=== PATIENT | male | born 1950 | race Caucasian/White ===

== ENCOUNTER 2019-05-08 07:36 | Inpatient (IN) ==
--- NOTE | 2019-04-09 09:41 | PAT Medication Instructions ---
Medication Instructions Date of Service April 09, 2019 Home Medications chlorthalidone 25 mg PO QAM losartan 100 mg PO QAM multivitamin 1 tab PO QAM nitroglycerin 0.4 mg SUBLINGUAL DAILY PRN rosuvastatin 20 mg PO QPM warfarin 6 mg PO 5XWK Continue as directed nitroglycerin 0.4 mg SUBLINGUAL DAILY PRN ASK your prescriber and surgeon warfarin 6 mg PO 5XWK DO NOT take the morning of surgery chlorthalidone 25 mg PO QAM losartan 100 mg PO QAM multivitamin 1 tab PO QAM Take evening before surgery rosuvastatin 20 mg PO QPM *NOTHING TO EAT OR DRINK AFTER MIDNIGHT* Other Notes If you have any questions please call us at [phone] or [phone] or [phone] or [phone]
--- NOTE | 2019-04-09 10:37 | Anesthesiology Consultation ---
Date of Service April 09, 2019 Assessment & Plan (1) Encounter for pre-operative examination: Cardiology 02/26/2019: "No contraindication for knee surgery from cardiac standpoint. His functional capacity is excellent. His cardiovascular risk is acceptable. His medical therapy is optimized." Chart Review Chart Review: Acceptable Risk for Surgery (pending pre op testing and pcp clearance) and Patient seen in Pre Admission Testing Teaching & Discussion Instructed NPO after midnight before surgery, except medications with 15 cc of water. Medication instructions provided according to the PAT guidelines. History Surgery Operation Date: 05/08/19 09:30 Proposed Procedures p Right Total Knee Arthroplasty - Blayne Massey MD Height/Weight Height: 6 ft 2 in Weight: 119.5 kg Allergies Allergy/AdvReac Type Severity Reaction Status Date / Time Penicillins Allergy Unknown VERTIGO Verified 04/03/19 10:53 Medications Home Medications Medication Instructions Recorded Confirmed Last Taken chlorthalidone 25 mg PO QAM 04/03/19 04/03/19 Unknown losartan 100 mg PO QAM 04/03/19 04/03/19 Unknown multivitamin 1 tab PO QAM 04/03/19 04/03/19 Unknown nitroglycerin 0.4 mg SUBLINGUAL DAILY PRN 04/03/19 04/03/19 Unknown rosuvastatin 20 mg PO QPM 04/03/19 04/03/19 Unknown warfarin 6 mg PO 5XWK 04/03/19 04/03/19 Unknown Past Medical History Medical History (Updated 04/09/19 @ 11:12 by Trell Dodson) Afib Permanent, on Coumadin CAD (coronary artery disease) Status post PCI of pLAD with JAYLENE and PTCA of D2 on October 21, 2010. DJD (degenerative joint disease) Hearing deficit B/L hearing aids Hyperlipidemia Hypertension Myocardial infarction LAD TERRITORY PER 2018 ECHO. PRESERVED EF. Osteoarthritis Exercise / Class Metabolic Activity II 4-5 Yardwork/Stairs/Walk up hill (Denies Cp or SOB with 1 FOS) He is very active. He rides a stationary bicycle for 60 minutes a day, 5 to 7 days a week. He lifts weights 3 times a week. Past Surgical History Surgical History Hx of appendectomy Hx of cardiac cath 2010 [facility] - 1 STENT Hx of colonoscopy Past Anesthesia History No Hx of Anesthesia Complications and No Family Hx of Anesthesia Complications History of PONV No Hx of PONV and No Hx of Motion Sickness Social History Smoking Status: Never smoker Do You Dip or Chew Tobacco: No Hx Alcohol Use: No Hx Substance Use: No Review of Systems Pt denies any recent chest pain, shortness of breath, palpitations, cough, fever or URI. Physical Exam Vital Signs BP: 97/65 (denies lightheadedness/dizziness, states he is usually low 100's systolic) P: 49bpm (asymptomatic) SPO2: 97% RA T: 97.7 F R: 16 ENMT Mouth: + dentures (partial upper); no dental restorations, no chipped teeth and no loose teeth Thyromental Distance: > or= 3.5 Finger Breadths (4) Mallampati Class: II Neck normal visual inspection, + limited neck extension and + facial hair (short mustache) Respiratory normal respiratory effort Auscultation: lungs clear to auscultation bilaterally Cardiovascular Rate/Rhythm: + bradycardic; + abnormal rhythm (irreg irreg) Heart Sounds: no murmur Vessels: no carotid bruit Extremities: no edema Testing Electrocardiogram Date: 04/09/19 Chest X-Ray Date: 04/09/19 Echocardiogram Date: 09/25/17 EF: 55-59% Apical inferior septum, apical anterior segment and mid anteroseptal segments are hypokinetic (LAD territory). The rest of the LV contracts normally. Left atrium is severely enlarged (> 48 mL/m) and the right atrium is enlarged (>18) the right ventricular cavity size is normal and right ventricular systolic function is normal. There is no evidence of pulmonary hypertension. No significant valvular disease is present.
--- NOTE | 2019-04-09 11:30 | XRay Report ---
XR chest Pre-admission PA/Lat CLINICAL HISTORY: 68 years-old Male presenting with preoperative assessment. TECHNIQUE: PA and lateral views of the chest were obtained. COMPARISON: None. FINDINGS: Atherosclerosis of the aortic arch. Cardiac silhouette mildly enlarged. Small or pleural effusion. Mi nimal basilar opacity. No pneumothorax. Degenerative changes of the thoracic spine. Upper abdomen nor mal. IMPRESSION: 1. Small right pleural effusion and atelectasis. 2. Mild cardiomegaly. ACT 112: Negative or not required by law. Electronically signed by: Lawrence Miranda M.D. 04/09/2019 11:28 AM
[2019-04-09 11:52] LABS: Basophils # (auto) 0.02 K/uL (0-0.2); Basophils % (auto) 0.3 %; Eosinophils # (auto) 0.07 K/uL (0-0.5); Eosinophils % (auto) 1.1 %; Hemoglobin 12.9 g/dL (14.0-18.0); Immature Granulocytes # (auto) 0.01 K/uL (0.00-0.02); Immature Granulocytes % (auto) 0.2 %; Lymphocytes # (auto) 1.75 K/uL (1.2-3.4); Lymphocytes % (auto) 27.7 %; Mean Corpuscular Hemoglobin 25.4 pg (25-34); Mean Corpuscular Hgb Conc 32.3 g/dL (32-36); Mean Corpuscular Volume 78.9 fL (80-100); Mean Platelet Volume 11.7 fL (7.4-10.4); Monocytes # (auto) 0.73 K/uL (0.11-0.59); Monocytes % (auto) 11.6 %; Neutrophils # (auto) 3.73 K/uL (1.4-6.5); Neutrophils % (auto) 59.1 %; Platelet Count 237 K/uL (130-400); RDW Standard Deviation 45.6 fL (36.4-46.3); Red Blood Count 5.07 M/uL (4.7-6.1); White Blood Count 6.31 K/uL (4.8-10.8)
[2019-04-09 11:54] LABS: Appearance Urine Clear (Clear); Bacteria Urine Automated Negative (Negative); Bilirubin Urine Negative (Negative); Blood Urine Trace (Negative); Cast Urine Automated 0 /lpf (0-5); Color Urine Yellow; Epithelial Cell Urine Auto 0-5 /lpf (0-5); Glucose Urine UA Negative (Negative); Ketones Urine Negative (Negative); Leukocyte Esterase Urine Negative (Negative); Nitrite Urine Negative (Negative); Protein Urine Negative (Negative); Urobilinogen Urine Negative (Negative); pH Urine 6.5 (4.5-7.5)
[2019-04-09 11:59] LABS: Estimated Average Glucose 123 mg/dl; Hemoglobin A1C 5.9 % (4.5-5.6)
[2019-04-09 12:00] LABS: Albumin Level 3.3 gm/dl (3.4-5.0); BUN Creatinine Ratio 25.7 (10-20); Calcium 8.8 mg/dl (8.5-10.1); Creatinine Clr Calc Pharmacy 99.8 ml/min; Est GFR (African American) 90.5; Est GFR (Non-African American) 78.1; Potassium 3.7 mmol/L (3.5-5.1)
[2019-04-09 12:05] LABS: INR 2.6 (0.9-1.1); Partial Thromboplastin Ratio 1.3; Partial Thromboplastin Time 36.5 Seconds (21.0-31.0); Prothrombin Time 25.3 Seconds (9.0-12.0)
--- NOTE | 2019-04-09 12:09 | Electrocardiogram Report ---
Test Reason : Blood Pressure : / mmHG Vent. Rate : 054 BPM Atrial Rate : 234 BPM P-R Int : 000 ms QRS Dur : 094 ms QT Int : 442 ms P-R-T Axes : 000 083 066 degrees QTc Int : 419 ms Atrial fibrillation with slow ventricular response Abnormal ECG No previous ECGs available Confirmed by Morris Guido ([id number]) on 04/09/2019 12:09:46 PM Referred By: Blayne Massey Confirmed By:Morris Guido
--- NOTE | 2019-05-07 18:21 | History and Physical Report ---
DATE OF ADMISSION: 05/08/2019 CHIEF COMPLAINT: Chronic right knee pain. HISTORY OF PRESENT ILLNESS: This is a 68-year-old male patient of Dr. Massey'trista complaining of chronic right knee pain, longstanding, now progressively getting worse. The patient has failed conservative treatment including viscosupplementation, anti-inflammatories, home exercise program and the use of a brace. The patient has increased pain with weightbearing activities and his pain does interfere with his activities of daily living. The patient has been diagnosed with end-stage osteoarthritis per clinical and radiographic exams. The patient wished to proceed with a right total knee arthroplasty. PAST MEDICAL HISTORY: Coronary artery disease, status post an CA 11 of years ago, atrial fibrillation, rheumatoid arthritis, and osteoarthritis. SOCIAL HISTORY: Nonsmoker, nondrinker. FAMILY HISTORY: Noncontributory. REVIEW OF SYSTEMS: Chronic right knee pain and instability. Otherwise, denies any shortness of breath, chest pain, nausea, vomiting or any other joint complaints. MEDICATIONS: 1. Chlorthalidone 25 mg daily. 2. Losartan 100 mg daily. 3. Multivitamin daily. 4. Nitroglycerin 0.4 mg sublingual tablet as needed. 5. Crestor 20 mg daily. 6. Coumadin 6 mg as directed. ALLERGIES: PENICILLIN. PHYSICAL EXAMINATION: GENERAL: Well-developed, well-nourished 68-year-old male in no acute distress. He is alert and oriented x3 and pleasant. HEENT: Normocephalic, atraumatic. Extraocular motions are intact. Pupils are equal and reactive to light. HEART: Irregular rate and rhythm with a history of atrial fibrillation. LUNGS: Clear. ABDOMEN: Soft and nontender. Bowel sounds present. EXTREMITIES: Right knee limited range of motion of 0-90 degrees. He has a mild effusion. He has a varus deformity with medial joint line tenderness. 4/5 strength. Neurologically and neurovascularly intact in his right lower extremity. DIAGNOSES: 1. Right knee end-stage osteoarthritis. 2. Coronary artery disease, status post a myocardial infarction 11 years ago. 3. Atrial fibrillation. 4. Rheumatoid arthritis and osteoarthritis. PLAN: The patient was advised of his diagnosis. Indications, risks, benefits, postop course have all been reviewed. The patient wished to proceed with a right total knee arthroplasty. Necessary consent forms, preoperative testing and clearances will be obtained.
[~2019-05-08 07:36] MED LIST: ACETAMINOPHEN 500 MG TAB PO SCH; BUPIVACAINE 0.5 % 5 MG/1 ML PF 10ML VIAL ONE; CeleBREX 200 MG CAP PO SCH; EPINEPHrine INJ 1 MG/ML AMP ONE; FAMOTIDINE 20 MG TAB PO SCH; GABAPENTIN 300 MG CAP PO SCH; LR 500ML BOLUS, THEN 15ML/HR IV SCH; METOCLOPRAMIDE HCL 10 MG TABLET PO SCH; ROPIVACAINE 0.5% 5 MG/ML 30 ML VIAL ONE; ROPIVACAINE 0.5% HCL/PF 150 MG, BUPIVACAINE 0.5% MPF 30 ML, EPINEPHrine 30MG/30ML (OR U... INFIL SCH; VANCOMYCIN HCL 1,750 MG in SODIUM CHLORIDE 0.9% 500 ML IV SCH; dexAMETHasone 4 MG TAB PO SCH
[2019-05-08] MEDS ORDERED: fentaNYL citrate 100 MCG/2 ML VIAL ONE (07:53)
[2019-05-08] MEDS ORDERED: PROPOFOL IV EMULSION 10 MG/ML 20 ML VIAL IV ONE ×3 (07:53→10:50)
[2019-05-08] MEDS ORDERED: PHENYLEPHRINE 100MCG/ML 5ML SYR ONE (07:53)
[2019-05-08] MEDS ORDERED: ePHEDrine sulfate 50 MG/ML SYR ONE (07:53)
[2019-05-08] MEDS ORDERED: LIDOCAINE HCL 2% 2 ML VIAL/AMP(20MG/ML) INFIL ONE (07:53)
[2019-05-08] MEDS ORDERED: MIDAZOLAM HCL 1 MG/ML 2ML VIAL ONE ×2 (07:53)
[2019-05-08 08:46] LABS: INR 1.2 (0.9-1.1); Partial Thromboplastin Time 26.8 Seconds (21.0-31.0); Prothrombin Time 11.9 Seconds (9.0-12.0)
--- NOTE | 2019-05-08 09:08 | History & Physical Bridge Note ---
Date of Service May 08, 2019 History & Physical Bridge Note I have examined the patient, reviewed the History & Physical and in the interval since the performance of the History & Physical I have noted the following changes of clinical significance: no changes noted
[2019-05-08] MEDS ORDERED: ORTHO JOINT ANESTHETIC ONE (09:41)
[2019-05-08] MEDS ORDERED: BACITRACIN INJ 50,000 UNIT VIAL ONE (09:42)
[2019-05-08] MEDS ORDERED: ePHEDrine sulfate 50 MG/ML AMP IV PRN (10:48)
[2019-05-08] MEDS ORDERED: ATROPINE SULFATE 0.1 MG/ML 10ML SYR IV PRN (10:48)
--- NOTE | 2019-05-08 12:41 | Operative Report ---
Post Operative Report Pre & Post Diagnosis Operation Date: 05/08/19 10:20 Pre-Op Diagnosis: Right Knee Osteoarthritis Post-Op Diagnosis: Right Knee Osteoarthritis I identified the patient and participated in the time-out.: Yes Procedure Operation Date: 05/08/19 10:20 Actual Procedures p Right Total Knee Arthroplasty(Right) - Blayne Massey MD Surgeon Blayne Massey MD Reclaimer CASSIA [place] Estimated Blood Loss 5 Findings Consistent with Post-Op Diagnosis Specimens Bone cuts Drains 2 Hemovac Anesthesia Type MAC Spinal Regional Complications none Disposition Accompanied Patient To Recovery: No Disposition: Recovery Room Indications 68-year-old male with bilateral knee osteoarthritis with severe right knee osteoarthritis [id number] on weightbearing flexion views. Patient has tricompartmental OA and decreased range of motion Description of Procedure Patient taken to the operating room placed supine on the operating table and anesthetized under spinal MAC regional anesthesia. Exam under anesthesia demonstrated varus knee [id number] crepitation range of motion of 10 to 95 degrees only no instability. A pneumatic tourniquet was placed about the thigh of the right lower extremity. The right lower extremity was prepped and draped in usual fashion. Leg was elevated exsanguinated with an Esmarch bandage and the pneumatic was raised to 325 mm mercury. An anterior incision was made across the right knee. The skin was incised longitudinally subcutaneous flaps were elevated and an incision was made through the medial retinaculum extending up into the mid third of the quadriceps tendon and extended down to the medial tibial tubercle. Intra-articular findings demonstrated tricompartmental DJD root detachment posterior horn the meniscus with chronic knee meniscus tear. Grade 4 trochlear patellofemoral DJD grade 3 patella chondromalacia grade 4 [id number]-[id number] medial compartment OA tricompartmental osteophytes. Grade 3 lateral compartment OA. The knee was exposed by excising the infrapatellar fat pad, excising the meniscal remnants and anterior cruciate ligament. Any inflamed synovial tissue was resected. The fat pad over the anterior femur was resected for placement of the component in that area. The lateral synovial bands were released. Appropriate releases were performed to balance ligaments. The femur was exposed. The custom femoral cutting block was pinned in position. The distal femoral cutting block was applied. The distal femoral cut was made with the oscillating saw. I took +2 more of the standard cut due to flexion contracture. The size 11, 4-in-1 cutting block was placed. The anterior and posterior chamfer cuts were made. The knee was extended and a subperiosteal peel lateral release was performed around the patella. The patella width was measured and width was reproduced using freehand cut technique. The 38 x 9.5 millimeter symmetrical patella was used. 3 drill holes are made for the pegs. The tibia was exposed. A custom tibial cutting block was positioned and drill holes were made for the cutting guide. Cutting guide was placed and the proximal cut was made with the oscillating saw. All osteophytes were resected. The lamina r&d lab technician was used to assess ligamentous balance and the ligaments were balanced in extension and flexion. The tibia was reexposed and measured for a size H tibial component. This was externally rotated in line with the tibial tubercle and the fixation pins were drilled. The proximal tibia was fashioned with the drill and punch. The size 11 CR femoral trial was inserted. The trial MC inserts were used. The 13 mm MC insert gave balanced ligaments through full range of motion. The patella tracked centrally. the trials were removed. The orthomix anesthetic cocktail was injected per protocol. The knee was then copiously irrigated with pulsatile lavage antibiotic solution with bacitracin. The final components were cemented with Simplex cement. The final components were [employer] persona right capital CR size 11 femoral component, H tibial component, 13 MC tibial polyethylene, 38 x 9.5 symmetrical patella. While the cement cured with the knee in full extension the Betadine soak was used per protocol. After the cement cured, the knee joint was copiously irrigated with antibiotic solution with bacitracin. 2 drains were brought out laterally and connected to a Hemovac. The quadriceps tendon and medial retinaculum were closed with interrupted [id number] #1 Vicryl sutures. The knee was taken through a full range of motion and repair was secure. The subcutaneous tissues were closed with 2-0 Vicryl sutures and skin was closed with quita. Sterile dressings were applied and the patient tolerated the procedure well. Arthur ANTONY my physician assistant director of plant operations, assisted in soft tissue retraction instrument management leg positioning the closure and will participate in the postoperative care of the patient. I attest to the content of the Intraoperative Record and any orders documented therein. Any exceptions are noted below.
--- NOTE | 2019-05-08 13:36 | XRay Report ---
XR knee RT 1 or 2V routine CLINICAL HISTORY: 68 years-old Male presenting with Surgical Post Op. TECHNIQUE: Frontal and lateral views of the right knee were obtained. COMPARISON: None. FINDINGS: Postsurgical changes of total right knee arthroplasty with patellar resurfacing. Surgical drain in pl jannet as well as overlying skin quita. Expected soft tissue and intra-articular emphysema. No peripro sthetic fracture or lucency. No malalignment. IMPRESSION: Expected postsurgical appearance status post total right knee arthroplasty with patellar resurfacing. ACT 112: Negative or not required by law. Electronically signed by: Lawrence Miranda M.D. 05/08/2019 1:35 PM
--- NOTE | 2019-05-08 13:37 | Anesthesiology Progress Note ---
Date of Service May 08, 2019 Anesthesia Post Procedure Vital Signs Vital Signs: Temp Pulse Resp BP Pulse Ox 05/08/19 13:30 69 16 111/68 92 05/08/19 13:20 68 17 109/68 95 05/08/19 13:10 73 19 101/70 98 05/08/19 13:00 79 12 98/61 L 99 05/08/19 12:54 36.6 C 82 21 104/66 98 05/08/19 09:32 69 20 139/80 97 05/08/19 08:45 64 20 130/81 96 05/08/19 08:14 36.7 C 71 22 130/86 97 Pain Intensity Right Knee: Pain Intensity: 0 Transfer of Care Handoff Completed per policy Notes Mental Status: alert / awake / arousable Patient Amnestic to Procedure: Yes Nausea / Vomiting: adequately controlled Pain: adequately controlled Airway Patency, RR, SpO2: stable & adequate BP & HR: stable & adequate Hydration State: stable & adequate Anesthetic Complications: no major complications apparent
[2019-05-08] MEDS ORDERED: ONDANSETRON INJ 2 MG/ML 2 ML VIAL IV PRN (14:17)
[2019-05-08] MEDS ORDERED: NITROGLYCERIN SL 0.4 MG/TAB TAB SL PRN (14:17)
[2019-05-08] MEDS ORDERED: WARFARIN SOD 6 MG TAB PO SCH (14:17)
[2019-05-08] MEDS ORDERED: MAGNESIUM HYDROXIDE SUSP 30 ML UDC PO PRN (14:17)
[2019-05-08] MEDS ORDERED: NALOXONE HCL 0.4 MG/1 ML VIAL/CARP IV PRN (14:17)
[2019-05-08] MEDS ORDERED: bisacodyL 10 MG SUPP PR PRN (14:17)
[2019-05-08] MEDS ORDERED: HYDROmorphone INJ 0.5 MG/0.5 ML SYR IV PRN (14:17)
[2019-05-08] MEDS ORDERED: VANCOMYCIN CONSULT ACTIVE PRN (14:17)
[2019-05-08] MEDS: SODIUM CHLORIDE 0.9% 1000ML 1,000 ML IV SCH (14:40)
--- NOTE | 2019-05-08 14:44 | Consultation ---
Date of Consultation May 08, 2019 Assessment & Plan (1) S/P total knee arthroplasty: Post op day# 0 S/P Right TKA by Dr Shilpa BILLS #5ml Post op doing well -pain management per ortho -wound management per ortho -PT/OT as appropriate -DVT prophylaxis per ortho -incentive spirometry -monitor H&H for acute blood loss anemia; Pre-op Hgb: 12.9 (2) Chronic atrial fibrillation: On Coumadin. CHADSVASC: 3 Current rate controlled Pt had stopped Coumadin 05/02/2019. Follows with Coumadin clinic who recommended restarting 9mg daily x 2 doses on 05/08/2019 then resuming 3mg on Mon and 6mg all other days -Resume Coumadin today -Monitor INR -Pt not on rate control meds (3) CAD (coronary artery disease): S/P PCI of pLAD with JAYLENE and PTCA of D2 on October 21, 2010 No CP or SOB -Continue statin -ASA currently on hold per ortho (4) Hypertension: BP 109/78 -Hold chlorthalidone in AM and reassess -Continue losartan with holding parameters (5) Hyperlipidemia: -Continue rosuvastatin DVT Prophylaxis -SCDs per ortho Disposition per primary service Follows with Christie Burns PA-C for routine care Pt was seen and care coordinated with Dr Torres. See addendum Pt will be followed by Dr Barr starting 05/09/2019 Thank you for this consultation. We will follow the patient with you during their hospital stay. You can reach a member of [facility] via pager @ [phone]. Supervising Physician Co-Signing Physician Notes I saw this patient with the physician periodicals library assistant, I participated in the history, physical, review of systems, and physical exam. I reviewed the medications with the patient and the physician periodicals library assistant and helped reconcile the medications. I helped take a detailed family and social history as well. I formulated the assessment and plan personally with the physician periodicals library assistant and went over it with the patient. Physical Exam Gen-AAO x 3, NAD, Afebrile Head-NCAT, EOMI, PERRLA, Anicteric Sclera, No Posterior Pharyngeal Erythema Neck-Supple, No JVD, No Thyromegaly, No Masses, No LAD, No Bruits Lungs-Clear to Auscultation Bilaterally, No Rales, No Rhonchi, No Wheezing, No Crepitus Chest-No S4, +S1, +S2, No S3, No Murmurs, No Rubs, No Gallops, No Ectopy Abdomen-Soft, Bowel Sounds Present, Non Tender, Non Distended, No Hepatomegaly, No Splenomegaly, No Palpable Masses, No Rebound, No Rigidity, No Guarding Musculoskeletal-R Knee Wrapped c Ice Extremities-No Cyanosis, No Clubbing, No Edema Nuero-Cranial Nerves II-XII grossly intact, Motor WNL, DTRs WNL, Strength WNL, Non Focal Psych-Normal Mood History of Present Illness Requesting Physician: Dr Massey Reason for Consultation: Post op medical management Attending Physician: Blayne Massey MD History of Present Illness Pt is 68 y/o M with PMH chronic atrial fibrillation on Coumadin, CAD s/p JAYLENE to LAD and PTCA D2 in 2010, HTN, dyslipidemia seen in consultation for post op medical management s/p R TKA today by Dr Massey. Post op pt states doing well. Still with some leg numbness and is starting to be able to move his foot/toes. Denies any nausea, vomiting, CP or SOB. Denies fever/chills, diaphoresis, LUO, dizziness, syncope, vision changes, neck pain, palpitations, cough, sore throat, choking, otalgia, rhinorrhea, abdominal pain, extremity edema, rashes, urinary symptoms. Allergies Allergy/AdvReac Type Severity Reaction Status Date / Time Penicillins Allergy Unknown VERTIGO Verified 05/08/19 08:11 Home Medications Home Medications Medication Instructions Recorded Confirmed Type chlorthalidone 25 mg PO QAM 04/03/19 05/08/19 History losartan 100 mg PO QAM 04/03/19 05/08/19 History multivitamin 1 tab PO QAM 04/03/19 05/08/19 History nitroglycerin 0.4 mg SUBLINGUAL DAILY PRN 04/03/19 05/08/19 History rosuvastatin 20 mg PO QPM 04/03/19 05/08/19 History warfarin 6 mg PO 5XWK 04/03/19 05/08/19 History aspirin [Aspirin Low Dose] 81 mg PO DAILY 05/08/19 05/08/19 History Patient History Family History (Updated 05/08/19 @ 14:44 by Swati Yates PA-C) Other Coronary heart disease Diabetes Hypertension Social History Preferred Language: Prydeinig Communication Ability: Effective Beliefs That Will Affect Care: None Current Living Situation: Spouse Feels Safe at Home: Yes Safety Concerns: Feels Safe At This Time Smoking Status: Never smoker Do You Dip or Chew Tobacco: No ; Second Hand Exposure: No ; Hx Alcohol Use: No Hx Substance Use: No Review of Systems Review of Systems: All systems reviewed & are unremarkable except as noted in HPI & below Physical Exam Physical Exam: General: no distress, WDWN Head: normocephalic, atraumatic Eyes: PERRL, EOM's intact, conjunctiva non-injected, anicteric ENT: normal inspection external ears, nose, mucous membranes moist Neck: supple, trachea midline Lungs: clear, no respiratory distress, no wheezing/rhonchi/rales CV: RRR, no murmur, no pretibial edema Abd: normal BS, soft, non-tender Ext: no cyanosis, no calf tenderness; Right leg with dressing and AYESHA wrap in place, hemovac in place. pedal pushes and pulls intact bilaterally, distal pulses intact, brisk capillary refill, sensation to light touch intact Neuro: A&O x 3, no focal deficits noted, normal affect Skin: warm, dry Results & Data ([facility]) Vital Signs (Past 12 Hours) Vital Signs Temp Pulse Resp BP Pulse Ox 05/08/19 13:45 74 15 109/78 92 05/08/19 13:40 36.4 C L 72 18 114/69 94 05/08/19 13:30 69 16 111/68 92 05/08/19 13:20 68 17 109/68 95 05/08/19 13:10 73 19 101/70 98 05/08/19 13:00 79 12 98/61 L 99 05/08/19 12:54 36.6 C 82 21 104/66 98 05/08/19 09:32 69 20 139/80 97 05/08/19 08:45 64 20 130/81 96 05/08/19 08:14 36.7 C 71 22 130/86 97
[2019-05-08] MEDS: ACETAMINOPHEN 500 MG TAB PO SCH ×2 (15:33→21:28)
[2019-05-08] MEDS: WARFARIN SOD 3 MG TAB PO SCH (15:35)
[2019-05-08] MEDS ORDERED: VANCOMYCIN HCL 1,750 MG in SODIUM CHLORIDE 0.9% 500 ML IV SCH (20:00)
[2019-05-08] MEDS: DOCUSATE SODIUM 100 MG CAP PO SCH (21:27)
[2019-05-08] MEDS: ROSUVASTATIN CALCIUM 20 MG TAB PO SCH (21:27)
[2019-05-08] MEDS: SENNA 8.6 MG TAB PO SCH (21:28)
[2019-05-08] MEDS: CeleBREX 200 MG CAP PO SCH (21:28)
[2019-05-09] MEDS: SODIUM CHLORIDE 0.9% 1000ML 1,000 ML IV SCH (02:29)
[2019-05-09 05:38] LABS: Hematocrit (blood only) 32.5 % (42-52); Hemoglobin 10.6 g/dL (14.0-18.0); Mean Corpuscular Hemoglobin 25.6 pg (25-34); Mean Corpuscular Hgb Conc 32.6 g/dL (32-36); Mean Corpuscular Volume 78.5 fL (80-100); Mean Platelet Volume 11.7 fL (7.4-10.4); Platelet Count 202 K/uL (130-400); RDW Coefficient of Variation 16.3 % (11.5-14.5); RDW Standard Deviation 46.4 fL (36.4-46.3); Red Blood Count 4.14 M/uL (4.7-6.1); White Blood Count 16.77 K/uL (4.8-10.8)
[2019-05-09 05:56] LABS: INR 1.3 (0.9-1.1); Prothrombin Time 12.8 Seconds (9.0-12.0)
[2019-05-09 06:11] LABS: BUN Creatinine Ratio 30.6 (10-20); Calcium 8.3 mg/dl (8.5-10.1); Creatinine Clr Calc Pharmacy 99.4 ml/min; Est GFR (African American) 90.5; Est GFR (Non-African American) 78.1; Potassium 3.6 mmol/L (3.5-5.1)
[2019-05-09] MEDS: ACETAMINOPHEN 500 MG TAB PO SCH ×3 (06:15→20:58)
--- NOTE | 2019-05-09 08:02 | Hospitalist Progress Note ---
Date of Service May 09, 2019 Assessment & Plan (1) S/P total knee arthroplasty: Post op day# 1 S/P Right TKA by Dr Shilpa BILLS #5ml Hemovac output#[id number] Post op doing well -pain management per ortho -wound management per ortho -PT/OT as appropriate -DVT prophylaxis per ortho -incentive spirometry -Hgb: 10.6 from 12.9 pre-op. Continue to monitor H&H for acute blood loss anemia (2) Chronic atrial fibrillation: On Coumadin. CHADSVASC: 3 Current rate controlled. No palpations. -Coumadin resumed on 05/08/2019 with dose of 9mg for 2 days, then to be followed by his normal home dose of 3mg on Mon & Fri and 6mg all other days -INR: 1.3 -Monitor INR -Pt not on rate control meds (3) CAD (coronary artery disease): S/P PCI of pLAD with JAYLENE and PTCA of D2 on October 21, 2010 No CP or SOB -Continue statin -ASA currently on hold per ortho (4) Hypertension: BP 111/74 -Hold chlorthalidone -Losartan held today, plan to resume tomorrow -Monitor BP (5) Hyperlipidemia: -Continue rosuvastatin DVT Prophylaxis -SCDs per ortho Disposition per primary service Follows with Christie Burns PA-C for routine care Pt was seen and care coordinated with Dr Barr. See addendum Admission and Anticipated Discharge Date Admission Date: May 08, 2019 Supervising Physician Co-Signing Physician Notes Attending Addendum: delayed entry date of service as noted above care coordinated with CASSIA Mckeon please refer to her notes for full details, I agree with her notes patient seen and examined, records reviewed by myself as well on exam, patient seen resting in bed, in very good spirits states he feels fine overall, minimal discomfort on the knee, ambulated in the halls with no symptoms no chest pain, dyspnea, palpitations, dizziness no other symptoms VS noted and reviewed oriented x 3, not in distress, speaks in sentences with no effort nor accessory muscle use normal rate, regular rhythm, no murmurs clear breath sounds bilaterally non distended, soft, nontender right knee- heavy dressing in place with drain- sanguinous output no bipedal edema, erythema, warmth no neuro deficits WBC 16 Hg 10.6 Crea 1.00 ASSESSMENT AND PLAN s/p Knee Surgery stable overall management of anemia per #2 Anemia, Acute Blood Loss monitor Hg check Fe transfuse if Hg < 8, if having cardiac symptoms keep Hg > 10 Chronic Afib on Coumadin, monitor INR other diagnoses and plan of care as per CASSIA Longoria S notes Trell Barr MD Subjective Pt seen and examined. Sitting up in bed. Reports doing well. Pain controlled. Has been able to ambulate with walker to bathroom. Urinating without difficulty. No BM, reports passing flatus. Eating and drinking well, denies nausea or vomiting. Denies fever/chills, diaphoresis, LUO, dizziness, syncope, vision changes, neck pain, CP, SOB, orthopnea, palpitations, cough, sore throat, choking, otalgia, rhinorrhea, abdominal pain, paresthesias, extremity weakness, extremity edema, rashes, urinary symptoms. Review of Systems Review of Systems: All systems reviewed & are unremarkable except as noted in HPI & below Physical Exam Physical Exam: General: no distress, WDWN Head: normocephalic, atraumatic Eyes: conjunctiva non-injected, anicteric ENT: normal inspection external ears, nose, mucous membranes moist Neck: supple, trachea midline Lungs: clear, no respiratory distress, no wheezing/rhonchi/rales CV: irregularly irregular, rate 72, no murmur, no pretibial edema Abd: normal BS, soft, non-tender Ext: no cyanosis, no calf tenderness; right leg with jannet wrap and surgical dressing in place, Hemovac with serosanguineous drainage, distal pulses intact, sensation to light touch intact Neuro: A&O x 3, no focal deficits noted, normal affect Skin: warm, dry Results & Data ([facility]) Vital Signs (Past 12 Hours) Vital Signs Temp Pulse Pulse Resp BP Pulse Ox 05/09/19 03:30 36.5 C 67 18 111/74 96 05/08/19 23:33 36.4 C L 63 18 112/68 96 05/08/19 20:26 59 L 102/61 Laboratory Results Short CBC 04/09/19 04/09/19 05/08/19 Range/Units 10:52 10:52 08:12 WBC (4.8-10.8) K/uL Hgb (14.0-18.0) g/dL Hct (42-52) % Plt Count (130-400) K/uL INR 2.6 H 1.2 H (0.9-1.1) BUN 26 H (7-18) mg/dl Creatinine 1.00 (0.6-1.4) mg/dl 05/09/19 05/09/19 05/09/19 Range/Units 05:02 05:02 05:02 WBC 16.77 H (4.8-10.8) K/uL Hgb 10.6 L (14.0-18.0) g/dL Hct 32.5 L (42-52) % Plt Count 202 (130-400) K/uL INR 1.3 H (0.9-1.1) BUN 31 H (7-18) mg/dl Creatinine 1.00 (0.6-1.4) mg/dl BMP 05/09/19 05:02 Sodium 139 Potassium 3.6 Chloride 107 Carbon Dioxide 27 BUN 31 H Creatinine 1.00 Glucose 128 H Calcium 8.3 L
[2019-05-09] MEDS: MULTIVITAMIN TAB PO SCH (08:46)
[2019-05-09] MEDS: DOCUSATE SODIUM 100 MG CAP PO SCH ×2 (08:46→20:57)
[2019-05-09] MEDS: CeleBREX 200 MG CAP PO SCH ×2 (08:46→20:56)
[2019-05-09] MEDS: OXYCODONE HCL IR 5 MG TAB (IMMEDIATE RELEASE) PO PRN (08:49)
[2019-05-09] MEDS ORDERED: CHLORTHALIDONE 25 MG TAB PO SCH (09:00)
[2019-05-09] MEDS ORDERED: MULTIVITAMIN TAB PO SCH (09:00)
[2019-05-09] MEDS ORDERED: LOSARTAN POTASSIUM 50 MG TAB PO SCH (09:00)
--- NOTE | 2019-05-09 09:28 | Orthopedic Progress Note ---
Date of Service May 09, 2019 Assessment & Plan (1) S/P total knee arthroplasty: POD #2, Right TKA PT/ OT DVT proph- Coumadin D/C planning- Home w OPPT As per medicine. Admission and Anticipated Discharge Date Admission Date: May 08, 2019 Subjective POD #1, Doing well. Denies SOB, CP, N/V. Pain controlled well. Wishes OPPT at D/C. Physical Exam Physical Exam: Right knee dressings/ drain c/d/i. Toes/ ankle mobile. No calf tenderness. A&Ox3. Results & Data ([facility]) Vital Signs (Past 12 Hours) Vital Signs Temp Pulse Resp BP Pulse Ox 05/09/19 08:12 36.4 C L 66 18 122/80 97 05/09/19 03:30 36.5 C 67 18 111/74 96 05/08/19 23:33 36.4 C L 63 18 112/68 96
--- NOTE | 2019-05-09 09:48 | Anesthesiology Progress Note ---
Date of Service May 09, 2019 Anesthesia Post Procedure Vital Signs Vital Signs: Temp Pulse Pulse Pulse Resp BP Pulse Ox 05/09/19 08:12 36.4 C L 66 18 122/80 97 05/09/19 03:30 36.5 C 67 18 111/74 96 05/08/19 23:33 36.4 C L 63 18 112/68 96 05/08/19 20:26 59 L 102/61 05/08/19 19:11 36.4 C L 63 18 102/65 97 05/08/19 16:44 36.4 C L 58 L 18 104/66 96 05/08/19 16:39 36.4 C L 74 16 107/68 96 05/08/19 15:46 36.4 C L 18 114/71 96 05/08/19 14:52 36.4 C L 67 18 117/74 96 05/08/19 14:10 36.7 C 68 16 130/68 94 05/08/19 13:45 74 15 109/78 92 05/08/19 13:40 36.4 C L 72 18 114/69 94 05/08/19 13:30 69 16 111/68 92 05/08/19 13:20 68 17 109/68 95 05/08/19 13:10 73 19 101/70 98 05/08/19 13:00 79 12 98/61 L 99 05/08/19 12:54 36.6 C 82 21 104/66 98 Pain Intensity Right Knee: Pain Intensity: 1 Notes Mental Status: alert / awake / arousable and participated in evaluation Patient Amnestic to Procedure: Yes Nausea / Vomiting: adequately controlled Pain: adequately controlled Airway Patency, RR, SpO2: stable & adequate BP & HR: stable & adequate Hydration State: stable & adequate Neuraxial Anesthesia: was administered and sensory block resolved Anesthetic Complications: no major complications apparent and Pt Satisfied with anesthetic care
[2019-05-09] MEDS: WARFARIN SOD 3 MG TAB PO SCH (16:12)
[2019-05-09] MEDS: ROSUVASTATIN CALCIUM 20 MG TAB PO SCH (20:57)
[2019-05-09] MEDS: SENNA 8.6 MG TAB PO SCH (20:57)
[2019-05-10] MEDS: ACETAMINOPHEN 500 MG TAB PO SCH (05:08)
[2019-05-10 05:36] LABS: Hematocrit (blood only) 28.8 % (42-52); Hemoglobin 9.2 g/dL (14.0-18.0); Mean Corpuscular Hemoglobin 25.1 pg (25-34); Mean Corpuscular Hgb Conc 31.9 g/dL (32-36); Mean Corpuscular Volume 78.7 fL (80-100); Mean Platelet Volume 11.6 fL (7.4-10.4); Platelet Count 188 K/uL (130-400); RDW Coefficient of Variation 16.8 % (11.5-14.5); Red Blood Count 3.66 M/uL (4.7-6.1)
[2019-05-10 05:52] LABS: INR 1.6 (0.9-1.1); Prothrombin Time 15.7 Seconds (9.0-12.0)
[2019-05-10 06:03] LABS: Calcium 8.3 mg/dl (8.5-10.1); Creatinine Clr Calc Pharmacy 89.6 ml/min; Est GFR (African American) 79.8; Est GFR (Non-African American) 68.8; Potassium 3.6 mmol/L (3.5-5.1)
[2019-05-10] MEDS: OXYCODONE HCL IR 5 MG TAB (IMMEDIATE RELEASE) PO PRN (07:54)
--- NOTE | 2019-05-10 08:07 | Orthopedic Progress Note ---
Date of Service May 10, 2019 Assessment & Plan (1) S/P total knee arthroplasty: POD #3, Right TKA PT/ OT DVT proph- Coumadin D/C planning- Home w OPPT today. As per medicine. Admission and Anticipated Discharge Date Admission Date: May 08, 2019 Subjective POD #2, Doing well. Denies SOB, CP, N/V. Pain controlled well. Wishes OPPT at D/C. Did well in PT. Physical Exam Physical Exam: Right knee silverlon dressing c/d/i, no drainage. Toes/ ankle mobile. No calf tenderness. A&Ox3 VSS Results & Data ([facility]) Vital Signs (Past 12 Hours) Vital Signs Temp Pulse Resp BP Pulse Ox 05/09/19 22:58 36.5 C 61 16 109/69 99
[2019-05-10] MEDS: CeleBREX 200 MG CAP PO SCH (08:43)
[2019-05-10] MEDS: DOCUSATE SODIUM 100 MG CAP PO SCH (08:43)
[2019-05-10] MEDS: MULTIVITAMIN TAB PO SCH (08:43)
--- NOTE | 2019-05-10 11:25 | Hospitalist Progress Note ---
Date of Service May 10, 2019 Assessment & Plan Admission and Anticipated Discharge Date Admission Date: May 08, 2019 Results & Data ([facility]) Vital Signs (Past 12 Hours) Vital Signs Temp Pulse Resp BP Pulse Ox 05/10/19 07:55 36.4 C L 75 18 100/66 100
[2019-05-10] MEDS ORDERED: WARFARIN SOD 3 MG TAB PO SCH (16:00)
[2019-05-11] MEDS ORDERED: WARFARIN SOD 6 MG TAB PO SCH (16:00)
== END 2019-05-10 12:03 | disposition home or self-care (01) | DRG 470 ==
LOC: ASU 07:36 → 3E 13:00